=== PATIENT | male | born 1985 | race Caucasian/White ===

== ENCOUNTER 2017-01-07 09:27 | Emergency (ER) | payer MEDICAID, OTHER ==
[~2017-01-07] VITALS: Ht 185.4 cm; Wt 109.1 kg
[~2017-01-07 09:27] MED LIST: BACI28.4 TP; CYCL10TA9 PO; IBUP800T28 PO; KLO2T PO; LTH300C PO; MIRT30TA PO; PRZ2C PO; RISP1TAB2 PO; SERT20OR6 PO
[2017-01-07 09:40] VITALS: BP 157/93; PULSE 120; RESP 22; O2SAT 98
[2017-01-07] MEDS ORDERED: 0.9% Sodium Chloride 1,000 ML IV SCH (09:45)
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
[2017-01-07 10:30] LABS: BASOPHILS % (AUTO) 0.3 % (0-3); EOSINOPHILS % (AUTO) 0.7 % (0-5); MONOCYTES % (AUTO) 12.6 % (4-12); Mean Corpuscular Hemoglobin 30.8 pg (27.0-35.0); Mean Corpuscular Volume 91.8 fL (81-100); NEUTROPHILS % (AUTO) 63.6 % (40-74); Platelet Count 215 bil/L (150-400)
[2017-01-07 11:00] VITALS: BP 142/85; PULSE 83; RESP 17; O2SAT 98
== END 2017-01-07 11:25 ==
LOC: EDBD 09:27 → SED 09:27
DX: F15.10 Other stimulant abuse, uncomplicated (principal); G89.29 Other chronic pain; M79.605 Pain in left leg; M79.604 Pain in right leg; M79.671 Pain in right foot; M79.672 Pain in left foot; M54.9 Dorsalgia, unspecified; R26.89 Other abnormalities of gait and mobility; R51 Headache; R22.43 Localized swelling, mass and lump, lower limb, bilateral; R00.0 Tachycardia, unspecified; F20.0 Paranoid schizophrenia; F11.10 Opioid abuse, uncomplicated; F43.10 Post-traumatic stress disorder, unspecified; Z87.891 Personal history of nicotine dependence; Z79.899 Other long term (current) drug therapy
CPT/HCPCS: 36415; 80053; 82550; 85025; 96360; 96372; 99284; J2060

== ENCOUNTER 2017-02-28 10:08 | Emergency (ER) | payer MEDICAID, OTHER ==
[2017-02-28 10:20] VITALS: BP 142/89; PULSE 96; RESP 18; O2SAT 99
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
[2017-02-28] MEDS ORDERED: Haloperidol 5 mg/mL Inj IM ONE (10:55)
[2017-02-28 18:35] VITALS: PULSE 74; RESP 16
[2017-03-01 06:21] VITALS: BP 128/69; PULSE 65; RESP 16; O2SAT 97
== END 2017-03-01 08:55 | disposition home or self-care (01) ==
LOC: SED 10:08
DX: F15.10 Other stimulant abuse, uncomplicated (principal); Z87.891 Personal history of nicotine dependence
CPT/HCPCS: 82075; 96372; 99284; J1630; J2060

== ENCOUNTER 2017-03-31 12:40 | Emergency (ER) | payer MEDICAID, OTHER ==
[2017-03-31 12:44] VITALS: BP 115/75; PULSE 77; RESP 20; O2SAT 96
[2017-03-31 12:48] VITALS: BP 131/89; PULSE 82; RESP 22; O2SAT 100
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
[2017-03-31 12:53] VITALS: BP 131/89; PULSE 82; RESP 22; O2SAT 100
[2017-03-31] MEDS ORDERED: Trimethoprim-Sulfa 160 mg-800 mg Tablet PO ONE (12:55)
== END 2017-03-31 13:00 ==
LOC: SED 12:40
DX: T69.021A Immersion foot, right foot, initial encounter (principal); T69.022A Immersion foot, left foot, initial encounter; Z02.89 Encounter for other administrative examinations; X50.9XXA Other and unspecified overexertion or strenuous movements or postures, initial encounter; Y92.9 Unspecified place or not applicable; Y93.01 Activity, walking, marching and hiking; Y99.8 Other external cause status; F43.10 Post-traumatic stress disorder, unspecified; F15.10 Other stimulant abuse, uncomplicated; F20.0 Paranoid schizophrenia; Z87.891 Personal history of nicotine dependence